=== PATIENT | female | born 1975 | race Caucasian/White ===

== ENCOUNTER 2020-05-09 10:00 | Outpatient (RCR) | payer OTHER, SELFPAY ==
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
--- NOTE | 2020-04-30 09:44 | PCPTNOTE ---
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
--- NOTE | 2020-05-07 07:39 | PCPTNOTE ---
Patient called & cancelled scheduled appointment this date due to starting new job and working day shift.
--- NOTE | 2020-05-09 16:37 | PCPTNOTE ---
pt did not show for today's appt;
--- NOTE | 2020-05-13 08:45 | PCPTNOTE ---
Patient called & cancelled scheduled appointment this date due to having to work.
--- NOTE | 2020-05-15 11:29 | PCPTNOTE ---
pt did not show for today's reevaluation;
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
== END 2020-05-29 13:18 | disposition home or self-care (01) ==
LOC: ANHPT 10:00
PROVIDERS: PCP Surgery
DX: M54.2 Cervicalgia (principal)
CPT/HCPCS: 97014; 97110; 97140; 97161; G0283